=== PATIENT | female | born 1995 | race Caucasian/White ===

== ENCOUNTER 2016-12-19 14:38 | Observation (INO) | payer MEDICAID ==
[~2016-12-19] VITALS: Ht 167.6 cm; Wt 79.4 kg
[~2016-12-19 14:38] MED LIST: CEPH-507 PO; FERR-74 PO; HYDR-3812 PO; IBUP-1773 PO; PREN1.4T2 PO; SULF1TAB35 PO
--- NOTE | 2016-12-19 17:26 | ED Upper Extremity ---
General Chief Complaint: Upper Extremity Stated Complaint: SWOLLEN HAND PAIN IN L HAND Nursing Triage Note: PT REPORTS BLOOD DRAW APPROX 3 WEEKS FROM FINGER STICK AND HAS HAD INCREASED SWELLING AND BRUISING SINCE. REPORTS SEVERAL ER VISITS AND DR VISITS WITHOUT IMPROVEMENT. LEFT INDEX FINGER COOL, BLUE, AND TENDER TO THE TOUCH. CAP REFILL CAUSED TOO MUCH DISCOMFORT TO SEE COLOR CHANGE. Nursing Sepsis Screen: No Definite Risk Source: patient History of Present Illness Time seen by provider: 17:00 Initial Comments The patient is a 21-year-old white female who states that 3 weeks ago she had a blood draw attempted at an outpatient provider. They were in able to get a venous specimen so attempted to do a fingerstick on the left second finger. She reported this was very painful and more so when they attempted to squeeze for blood and she did not allow any further attempts. No blood was obtained. She reported that it continued to hurt and 4 or 5 days later began to turn color to a bluish tent. She then saw the emergency room at [facility]. She was told that this was a bruise and it would resolve. It did not and continued to become more ugly and color. She saw her provider and again was reassured that this was a bruise. Today at our ER is her third contact. Pain/Injury Location: left 2nd finger Method of Injury: unknown Allergies and Home Medications Allergies Coded Allergies: No Known Drug Allergies (Unverified , 06/05/15) Home Medications No Active Prescriptions or Reported Meds Constitutional: see HPI EENTM: no symptoms reported Respiratory: no symptoms reported Gastrointestinal: no symptoms reported Genitourinary: no symptoms reported Musculoskeletal: see HPI Skin: see HPI Psychiatric/Neurological: No Symptoms Reported Past Epdpraa-Iicyad-Mafyhh Hx Patient Social History Alcohol Use: Denies Use Recreational Drug Use: Yes (MARIJUANA; PAST HERION USE) Smoking Status: Current Everyday Smoker Type Used: Cigarettes Recent Foreign Travel: No Contact w/Someone Who Travel: No Recent Infectious Disease Expo: No Recent Hopitalizations: No Immunizations Up To Date Tetanus Booster (TDap): Less than 5yrs PED Vaccines UTD: No Date of Influenza Vaccine: Jun 21, 2016 Seasonal Allergies Seasonal Allergies: No Surgeries HX Surgeries: Yes Surgeries: Orthopedic Respiratory Hx Respiratory Disorders: No Cardiovascular Hx Cardiac Disorders: Yes Cardiac Disorders: Chronic Edema/Swelling Neurological Hx Neurological Disorders: No Reproductive System : No Hx Reproductive Disorders: No Genitourinary Hx Genitourinary Disorders: No Gastrointestinal Hx Gastrointestinal Disorders: Yes (HEP C) Gastrointestinal Disorders: Hepatitis Musculoskeletal Hx Musculoskeletal Disorders: No Endocrine Hx Endocrine Disorders: No HEENT HX ENT Disorders: No Cancer Hx Cancer: No Psychosocial Hx Psychiatric Problems: No Integumentary HX Skin/Integumentary Disorder: No Blood Transfusions Hx Blood Disorders: No Adverse Reaction to a Blood Tr: No Family Medical History Family Medial History: Patient reports no known family medical history. Physical Exam Vital Signs Vital Sign - Last 12Hours 12/19/16 15:30 Temp 99.4 Pulse 92 Resp 18 B/P (MAP) 141/92 O2 Delivery Room Air Capillary Refill : Less Than 3 Seconds General Appearance: moderate distress HEENT: normal ENT inspection Neck: normal inspection Cardiovascular: normal peripheral pulses, regular rate, rhythm, no edema, no gallop, no JVD, no murmur Respiratory: chest non-tender, lungs clear, normal breath sounds, no respiratory distress, no accessory muscle use Comments The distal phalanx of the left second finger is a seth blue in color. She is loathe to let me compressive however it does not show any blanching or return when I did so. This was quite painful to her. Progress/Results/Core Measures Results/Orders Vital Signs/I&O Vital Sign - Last 12Hours 12/19/16 15:30 Temp 99.4 Pulse 92 Resp 18 B/P (MAP) 141/92 O2 Delivery Room Air Blood Pressure Mean: 108 Departure Communication Progress Notes [address] Parks. He requested overnight admission and subcutaneous Lovenox. He will make a judgment in the morning about possibility of amputation. Impression Impression: Primary Impression: arterial obstruction distal phalanx left second finger Disposition: ADMITTED INPATIENT Condition: Stable/Unchanged Decision to Admit/Date: Dec 19, 2016 Time/Decision to Admit Time: 17:22 Departure-Patient Inst. Referrals: NO,LOCAL PHYSICIAN (PCP/Family) Primary Care Physician Scripts No Active Prescriptions or Reported Meds DIAZ VALENTINE MD Dec 19, 2016 17:26
[2016-12-19] MEDS ORDERED: ENOXAPARIN 40 MG/0.4 ML (LOVENOX) SYR SC ONE (17:45)
[2016-12-19] MEDS ORDERED: HYDROcodone/APAP 10 MG/325 MG (LORTAB) TAB PO ONE (18:00)
[2016-12-19] MEDS ORDERED: HYDROcodone/APAP 10 MG/325 MG (LORTAB) TAB PO PRN (19:30)
[2016-12-19] MEDS ORDERED: CATHETER FLUSH 10 ML SYR IV PRN (19:30)
[2016-12-19] MEDS: oxyCODONE/APAP 5/325MG (PERCOCET 5) TABLET PO PRN (20:06)
[2016-12-19] MEDS: CATHETER FLUSH 10 ML SYR IV SCH (22:48)
[2016-12-20] VITALS: BP 114/80
[2016-12-20] MEDS: oxyCODONE/APAP 5/325MG (PERCOCET 5) TABLET PO PRN ×3 (00:04→08:46)
[2016-12-20 04:00] VITALS: BP 113/64
[2016-12-20] MEDS: CATHETER FLUSH 10 ML SYR IV SCH (06:15)
[2016-12-20 08:00] VITALS: BP 109/72
[2016-12-20] MEDS ORDERED: ENOXAPARIN 40 MG/0.4 ML (LOVENOX) SYR SC SCH (09:00)
[2016-12-20] MEDS ORDERED: CIPROFLOXACIN 500 MG (CIPRO) TABLET PO SCH (09:00)
--- NOTE | 2016-12-20 09:13 | HISTORY AND PHYSICAL ---
DATE OF ADMISSION: 12/19/2016 ATTENDING PRIMARY CARE PHYSICIAN: [facility] Ms. Milagros Paul is a 21-year-old female who presented to [facility] emergency department today with a 3 week history of pain, swelling and discoloration of the left second distal finger. She underwent an attempted blood draw as an outpatient; however, they were unable to get blood at that time so they attempted a fingerstick which she reports was painful and no blood was obtained. She then reports that the pain and swelling continued for 4 to 5 days and did turn a bluish tint. She was seen at another emergency department where it was diagnosed to be a bruise and ecchymosis and was would resolve on its own. Over the next 3 weeks, the discoloration worsened as did the pain. On examination, there appears to be dry necrosis of the left second distal tip of the finger. She does not report any cold exposure to indicate a possible frostbite. She does not report any known history of any hypercoagulable disorders. She has also not experienced any fever nor chills and does not report any history of systemic infections or signs and symptoms of bacterial endocarditis. PAST MEDICAL HISTORY: 1. History of drug abuse. 2. Hepatitis C. PAST SURGERIES: Orthopedic procedure. ALLERGIES: No known drug allergies. MEDICATIONS: None. SOCIAL HISTORY: Positive smoke, 5 pack-years. History of marijuana and heroin use. FAMILY HISTORY: Noncontributory. VITAL SIGNS: Temperature 99.4, blood pressure 141/92, pulse 92, respirations 18. REVIEW OF SYSTEMS: This is a well-nourished female currently in no acute distress. She is not experiencing any shortness of breath or difficulty breathing. No chest pain, palpitations, or diaphoresis. No nausea or vomiting. No diarrhea or constipation. No fever or chills. No recent inadvertent weight loss. PHYSICAL EXAMINATION: CHEST: Clear. HEART: Regular. EXTREMITIES: No lower extremity edema. Negative Guerda sign. HEENT: No scleral icterus. No cervical lymphadenopathy. SKIN: Skin along the distal left second finger phalanx is a darkish discoloration and what appears to be dry necrosis. She has palpable radial and ulnar pulses. 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 We will admit and proceed with a trial of anticoagulation with therapeutic Lovenox on a b.i.d. basis. If there is no change in the status of the distal phalanx, we will then proceed with amputation of the distal phalanx. Job ID: [id number] Dictated Date: 12/19/2016 21:56:17 Blind Slat Stapling Machine Operator Date: 12/20/2016 09:05:17/jonas
--- NOTE | 2016-12-20 10:23 | Diagnostic Imaging Report ---
INDICATION: Pain and swelling. FINDINGS: The alignment of the left index finger is normal. There is no fracture or dislocation. The soft tissues are grossly unremarkable. IMPRESSION: No acute fracture or dislocation Dictated by: Dictated on workstation # [id number]
--- NOTE | 2016-12-20 12:02 | Progress Note (SOAP) ---
Subjective Subjective/Events-last exam Patient seen with Dr. Parks. Patient reports doing well. Reports that left index finger is still painful and pain meds do help some. Patient says that she believes the index finger is slight less bluish color. No fever/chills. Review of Systems General: No Chills, No Night Sweats Gastrointestinal: No: Abdominal Pain, Nausea, Vomiting Objective Exam Vital Signs Date Time Temp Pulse Resp B/P (MAP) Pulse Ox O2 Delivery O2 Flow Rate FiO2 12/20/16 09:00 96 Room Air 12/20/16 08:00 97.2 71 20 109/72 96 Room Air 12/20/16 04:00 98.0 71 22 113/64 97 Room Air 12/20/16 00:00 98.1 99 22 114/80 93 Room Air 12/19/16 22:06 Room Air 12/19/16 18:11 99.4 12/19/16 18:11 99.4 12/19/16 15:30 99.4 92 18 141/92 Room Air I & O 12/20/16 07:00 Intake Total 650 ml Balance 650 ml Capillary Refill : Less Than 3 Seconds General Appearance: No Apparent Distress, WD/WN HEENT: PERRL/EOMI Neck: Full Range of Motion, Normal Inspection, Non Tender, Supple Respiratory: Lungs Clear, Normal Breath Sounds, No Accessory Muscle Use, No Respiratory Distress Cardiovascular: Regular Rate, Rhythm, No Edema Gastrointestinal: normal bowel sounds, non tender, soft Extremity: Normal Capillary Refill (Left index finger not assessed due to severe pain, otherwise normal.), Normal Inspection (Except for left index finger.), Normal Range of Motion, Non Tender, No Calf Tenderness, No Pedal Edema Neurologic/Psychiatric: Alert, Oriented x3 Skin: Normal Color, Warm/Dry, Other (There is a left index finger with a bluish /seth distal tip. Painful to palpation. 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 Continue with Pain meds. Lovenox and continue to monitor vs surgical intervention with amputation. Will Discharge home and follow up in 2 weeks. Clinical Quality Measures DVT/VTE Risk/Contraindication: Risk Factor Score Per Nursin RFS Level Per Nursing on Admit: 2=Moderate JULIENNE RALPH APRN Dec 20, 2016 12:02 pm
--- NOTE | 2016-12-20 12:25 | Discharge Inst-Surgical ---
D/C Lap Instructions-KIDO New, Converted, or Re-Newed RX: RX on Chart Follow Up Appt in 2 weeks Activity as tolerated No driving while on pain medications Regular diet. Symptoms to Report: Fever over 101 degree F, Nausea/Vomiting If any problems/questions: Contact your physician or go to Emergency Room JULIENNE RALPH APRN Dec 20, 2016 12:24
[2016-12-20] MEDS ORDERED: OXYC-197 PO (12:38)
[2016-12-20] MEDS ORDERED: ENOX40DI13 SQ (12:38)
[2016-12-20] MEDS ORDERED: CIPR-225 PO (12:38)
[2016-12-20 14:30] VITALS: BP 109/72
--- NOTE | 2016-12-26 10:59 | Physician Query-Final Dx ---
DEWAYNE MOON 12/26/16 1059: Final Diagnosis Give Final Diagnosis Please give Final Diagnosis GABY MADERA MD 12/26/16 1246: Final Diagnosis Give Final Diagnosis digit ischemia due to arterial thrombosis DEWAYNE MOON Dec 26, 2016 10:59 GABY MADERA MD Dec 26, 2016 12:46
--- OUTSIDE RECORDS SUMMARY | 2017-01-11 08:48 | XMS REPORT ---
Author MARLO Lacy Organization [employer] Address Unknown Phone Unavailable Care Team Providers Care Unix Analyst Name Role Phone MARLO WILLIS CP Unavailable Allergies No Known Allergies Problems Problem Type Condition Code Onset Dates Condition Status Problem History of drug abuse Z87.898 Active Problem Controlled substance agreement terminated Z92.89 Active Problem Anxiety F41.9 Active Problem Hepatitis C antibody test positive R76.8 Active Medications No Known Medications Results No Known Results Summary Purpose [employer] Submission
--- OUTSIDE RECORDS SUMMARY | 2017-01-11 08:48 | XMS REPORT ---
Author Author DANA AMAYA [facility] [employer] Address Unknown Phone Unavailable Care Team Providers Care Men'S Locker Room Attendant Name Role Phone DANA AMAYA Unavailable Allergies No Known Allergies Problems Problem Type Condition ICD-9 Code Onset Dates Condition Status Problem Hepatitis C reactive 795.79 Active Problem History of drug abuse 305.93 Active Problem , normal first V22.0 Active Assessment , normal first V22.0 Active Medications No Known Medications Procedures Procedure Coding System Code Date Office Visit, Est Pt., Level 3 CPT-4 25961 May 10, 2015 Vital Signs Date/Time: May 10, 2015 Blood Pressure Diastolic 60 mmHg Blood Pressure Systolic 120 mmHg Weight 205 lbs Results No Known Results Summary Purpose [employer]Clinical[employer] Submission
--- OUTSIDE RECORDS SUMMARY | 2017-01-11 08:48 | XMS REPORT ---
Author Author DANA AMAYA [facility] [employer] Address Unknown Phone Unavailable Care Team Providers Care Heavy Machinery Operator Name Role Phone DANA AMAYA Unavailable Allergies No Known Allergies Problems Problem Type Condition Code Onset Dates Condition Status Problem Hepatitis C reactive 795.79 Active Problem History of drug abuse 305.93 Active Problem , normal first V22.0 Active Medications No Known Medications Results No Known Results Summary Purpose [employer] Submission
--- OUTSIDE RECORDS SUMMARY | 2017-01-11 08:48 | XMS REPORT ---
Author MATTHEW Garcia [facility] [employer] Address Unknown Phone Unavailable Care Team Providers Care Machine Sole Leveler Name Role Phone MATTHEW RITTER CP Unavailable Allergies No Known Allergies Problems Problem Type Condition ICD-9 Code Onset Dates Condition Status Problem Hepatitis C reactive 795.79 Active Problem History of drug abuse 305.93 Active Problem , normal first V22.0 Active Medications No Known Medications Results No Known Results Summary Purpose [employer] Submission
--- OUTSIDE RECORDS SUMMARY | 2017-01-11 08:48 | XMS REPORT | Continuity of Care Document ---
Author Author [facility] Address Unknown Phone Unavailable Allergies Active Description Code Type Severity Reaction Onset Reported/Identified Relationship to Patient Clinical Status Yes No Known Drug Allergies [id number] Drug Allergy Unknown N/ A 06/05/2015 Medications Problems Date Dx Coded Attending Type Code Diagnosis Diagnosed By 12/25/2014 MATTHEW RITTER DO V23.2 SUPERVISION OF HIGH-RISK WITH HISTORY OF 12/25/2014 MATTHEW RITTER DO V23.89 SUPERVISION OF OTHER HIGH-RISK 12/25/2014 MATTHEW RITTER DO V23.2 SUPERVISION OF HIGH-RISK WITH HISTORY OF 12/25/2014 MATTHEW RITTER DO V23.89 SUPERVISION OF OTHER HIGH-RISK 12/25/2014 MATTHEW RITTER DO V23.2 SUPERVISION OF HIGH-RISK WITH HISTORY OF 12/25/2014 MATTHEW RITTER DO V23.89 SUPERVISION OF OTHER HIGH-RISK 01/03/2015 MATTHEW RITTER DO 070.70 UNSPECIFIED VIRAL HEPATITIS C WITHOUT HEPATIC COMA 01/03/2015 MATTHEW RITTER DO 648.30 COMPL OF - DRUG DEPENDENCE 02/19/2015 DANA AMAYA E GAS WELL DRILLING MANAGER Ot V23.2 02/19/2015 DANA AMAYA E GAS WELL DRILLING MANAGER Ot V23.89 02/19/2015 VALERIA AMAYASIE E GAS WELL DRILLING MANAGER Ot V28.89 02/19/2015 VALERIA AMAYASIE E GAS WELL DRILLING MANAGER Ot V23.2 02/19/2015 DANA AMAYA E GAS WELL DRILLING MANAGER Ot V23.89 02/19/2015 VALERIA AMAYASIE E GAS WELL DRILLING MANAGER Ot V28.89 03/13/2015 MATTHEW RITTER DO Ot V22.0 03/15/2015 VALERIA AMAYASIE E GAS WELL DRILLING MANAGER Ot V23.2 03/15/2015 DANA AMAYA E GAS WELL DRILLING MANAGER Ot V23.89 03/15/2015 DANA AMAYA E GAS WELL DRILLING MANAGER Ot V28.89 04/12/2015 DANA AMAYA E GAS WELL DRILLING MANAGER Ot V23.2 04/12/2015 DANA AMAYA E GAS WELL DRILLING MANAGER Ot V23.89 04/12/2015 DANA AMAYA E GAS WELL DRILLING MANAGER Ot V28.89 04/12/2015 VALERIA RITTER DOA Kyree Ot V22.0 04/24/2015 DANA AMAYA E GAS WELL DRILLING MANAGER Ot 641.13 05/09/2015 VALERIA RITTER DOA K Ot 648.93 OTH CURR COND-ANTEPARTUM 05/09/2015 VALERIA RITTER DOA K Ot 789.00 ABDOMINAL PAIN, UNSPECIFIED SITE 05/21/2015 DANA AMAYA GAS WELL DRILLING MANAGER Ot 641.13 06/05/2015 VALERIA RITTER DOA Kyree Ot 644.13 THREAT LABOR NEC-ANTEPAR 06/05/2015 MATTHEW RITTER DO Ot V04.81 ND FOR PROPHYLACTIC VACCIN AND INOCULATI 06/06/2015 MATTHEW RITTER DO Ot 644.03 THRT ZORAIDA LABOR-ANTEPART 06/10/2015 GRICEL WILKES, LIANNE Armstrong Ot 650 NORMAL DELIVERY 06/10/2015 GRICEL WILKES, LIANNE Armstrong Ot V27.0 DELIVER-SINGLE LIVEBORN 06/17/2015 DANA AMAYA E GAS WELL DRILLING MANAGER Ot V23.2 06/17/2015 DANA AMAYA E GAS WELL DRILLING MANAGER Ot V23.89 06/17/2015 DANA AMAYA E GAS WELL DRILLING MANAGER Ot V28.89 06/17/2015 VALERIA RITTER DOA Kyree Ot V22.0 06/17/2015 DANA AMAYA E GAS WELL DRILLING MANAGER Ot 641.13 06/17/2015 DANA AMAYA E GAS WELL DRILLING MANAGER Ot 641.13 06/18/2015 MARTA WILKES, MULU Brooks Ot 591 HYDRONEPHROSIS 06/18/2015 MARTA WILKES, MULU Brooks Ot 594.1 BLADDER CALCULUS NEC 06/18/2015 MARTA WILKES, MULU Brooks Ot 599.0 URIN TRACT INFECTION NOS 06/18/2015 MARTA WILKES, MULU Brooks Ot 788.1 DYSURIA 06/18/2015 MARTA WILKES, MULU T Ot 788.20 RETENTION OF URINE NOS 05/09/2016 MATTHEW RITTER DO Ot 648.93 OTH CURR COND-ANTEPARTUM 05/09/2016 MATTHEW RITTER DO Ot 789.00 ABDOMINAL PAIN, UNSPECIFIED SITE 05/11/2016 HELVALERIA GALARZASIE E GAS WELL DRILLING MANAGER Ot V23.2 PREG W HX OF 05/11/2016 HELLVALERIA HARDWICKSIE E GAS WELL DRILLING MANAGER Ot V23.89 SUPRV OTH HIGH-RISK 05/11/2016 HELLRONEN DANA E GAS WELL DRILLING MANAGER Ot V28.89 OTHER SPECIFIED SCREENING 05/11/2016 MATTHEW RITTER DO Ot V22.0 SUPERVIS NORMAL 1ST PREG 05/11/2016 VALERIA AMAYASIE E GAS WELL DRILLING MANAGER Ot 641.13 PLACEN PREV HEM-ANTEPART 05/11/2016 NITALVALERIA HARDWICKSIE E GAS WELL DRILLING MANAGER Ot 641.13 PLACEN PREV HEM-ANTEPART 05/11/2016 REBECCA BUCK GAS WELL DRILLING MANAGER Ot R23.4 CHANGES IN SKIN TEXTURE 05/13/2016 REBECCA BUCK GAS WELL DRILLING MANAGER Ot R23.4 CHANGES IN SKIN TEXTURE 05/17/2016 REBECCA BUCK GAS WELL DRILLING MANAGER Ot R23.4 CHANGES IN SKIN TEXTURE 12/19/2016 DANA AMAYA E GAS WELL DRILLING MANAGER Ot V23.2 PREG W HX OF 12/19/2016 VALERIA AMAYASIE E GAS WELL DRILLING MANAGER Ot V23.89 SUPRV OTH HIGH-RISK 12/19/2016 VALERIA AMAYASIE E GAS WELL DRILLING MANAGER Ot V28.89 OTHER SPECIFIED SCREENING 12/19/2016 MATTHEW RITTER DO Ot V22.0 SUPERVIS NORMAL 1ST PREG 12/19/2016 VALERIA AMAYASIE E GAS WELL DRILLING MANAGER Ot 641.13 PLACEN PREV HEM-ANTEPART 12/19/2016 VALERIA AMAYASIE E GAS WELL DRILLING MANAGER Ot 641.13 PLACEN PREV HEM-ANTEPART 12/20/2016 SANTY WILKES, GABY Ot F17.210 NICOTINE DEPENDENCE, CIGARETTES, UNCOMPL 12/20/2016 SANTY WILKES, GABY Ot I74.2 EMBOLISM AND THROMBOSIS OF ARTERIES OF T 12/20/2016 SANTY WILKES, GABY Ot I96 GANGRENE, NOT ELSEWHERE CLASSIFIED 12/20/2016 GABY MADERA MD Ot T81.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 ARTERY FOLLOWING A 12/20/2016 GABY MADERA MD Ot F17.210 NICOTINE DEPENDENCE, CIGARETTES, UNCOMPL 12/20/2016 GABY MADERA MD Ot I74.2 EMBOLISM AND THROMBOSIS OF ARTERIES OF T 12/20/2016 GABY MADERA MD Ot I96 GANGRENE, NOT ELSEWHERE CLASSIFIED 12/20/2016 GABY MADERA MD, Ot T81.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 ARTERY FOLLOWING A Procedures Code [place] [address] TEST, URINE (IN-HOUSE) 12/25/2014 93059 URINE DRUG SCREEN (IN-HOUSE) 12/25/2014 01775 UA OB DIP 2014 03829 OB - EARLY <14 WEEKS 12/25/2014 85691 ROUTINE VENIPUNCTURE 12/29/2014 82853 CMP 12/29/2014 37427 TSH 12/29/2014 94049 CBC 12/29/2014 92819 SYPHILLIS-STATE [facility] 12/29/2014 07221 HIV (STATE LAB) 12/29/2014 39132 RUBELLA ANTIBODY, IGG 12/29/2014 43663 ANTIBODY SCREEN (order) 12/29/2014 03579 BLOOD TYPE/Rh FACTOR 12/29/2014 18684 CULTURE URINE 06/2015 43407 HEP B SURFACE ANTIGEN (STATE) 12/29/2014 77697 HEP C PCR QUANT W/BRISEIDA 12/29/2014 73.6 EPISIOTOMY 2014 Results Test Result Range Urine drug screening test - 12/19/16 22:05 Urine phencyclidine detection by screening method NEGATIVE NEGATIVE Urine benzodiazepines detection by screening method POSITIVE NEGATIVE Urine cocaine detection NEGATIVE NEGATIVE Urine amphetamines detection by screening method NEGATIVE NEGATIVE Urine methamphetamine detection by screening method NEGATIVE NEGATIVE Urine cannabinoids detection by screening method POSITIVE NEGATIVE Urine opiates detection by screening method POSITIVE NEGATIVE Urine barbiturates detection NEGATIVE NEGATIVE Screening urine tricyclic antidepressants detection NEGATIVE NEGATIVE Urine methadone detection by screening method NEGATIVE NEGATIVE Urine oxycodone detection NEGATIVE NEGATIVE Urine propoxyphene detection NEGATIVE NEGATIVE Encounters ACCT No. Visit Date/Time Discharge Status Pt. Type Provider Facility Loc./Unit Complaint [id number] 01/03/2015 15:51:00 01/03/2015 23: 59:59 CLS Outpatient RITTER DO, MATTHEW K [id number] 12/29/2014 12:01:00 12/29/2014 23: 59:59 CLS Outpatient MATTHEW RITTER DO [id number] 12/25/2014 13:40:00 12/25/2014 23: 59:59 CLS Outpatient MATTHEW RITTER DO
--- OUTSIDE RECORDS SUMMARY | 2017-01-11 08:48 | XMS REPORT ---
Author DANA Mcnair [facility] [employer] Address Unknown Phone Unavailable Care Team Providers Care Manager Farm Name Role Phone DANA AMAYA CP Unavailable Allergies No Known Allergies Problems Problem Type Condition Code Onset Dates Condition Status Problem History of drug abuse Z87.898 Active Problem Controlled substance agreement terminated Z92.89 Active Problem Anxiety F41.9 Active Problem Hepatitis C antibody test positive R76.8 Active Medications No Known Medications Results No Known Results Summary Purpose [employer]ClinicalWorks Submission
--- OUTSIDE RECORDS SUMMARY | 2017-01-11 08:48 | XMS REPORT ---
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
--- OUTSIDE RECORDS SUMMARY | 2017-01-11 08:48 | XMS REPORT ---
Author MATTHEW Garcia [facility] [employer] Address Unknown Phone Unavailable Care Team Providers Care Sugar Cane Planter Name Role Phone MATTHEW RITTER CP Unavailable Allergies No Known Allergies Problems Problem Type Condition ICD-9 Code Onset Dates Condition Status Problem Hepatitis C reactive 795.79 Active Problem History of drug abuse 305.93 Active Problem , normal first V22.0 Active Medications No Known Medications Results No Known Results Summary Purpose [employer]Works Submission
--- OUTSIDE RECORDS SUMMARY | 2017-01-11 08:48 | XMS REPORT ---
Author MATTHEW Garcia [facility] [employer] Address Unknown Phone Unavailable Care Team Providers Care Supervisor Poultry Farm Name Role Phone MATTHEW RITTER CP Unavailable Allergies No Known Allergies Problems Problem Type Condition ICD-9 Code Onset Dates Condition Status Problem Hepatitis C reactive 795.79 Active Problem History of drug abuse 305.93 Active Problem , normal first V22.0 Active Medications No Known Medications Results No Known Results Summary Purpose [employer]ClinicalWorks Submission
--- OUTSIDE RECORDS SUMMARY | 2017-01-11 08:49 | XMS REPORT ---
Author Author DANA AMAYA [facility] eClinicalWorks Address Unknown Phone Unavailable Care Team Providers Care Hospice Volunteer Coordinator Name Role Phone DANA AMAYA CP Unavailable Allergies, Adverse Reactions, Alerts Substance Reaction Event Type N.K.D.A. Info Not Available Non Drug Allergy Problems Problem Type Condition Code Onset Dates Condition Status Problem Hepatitis C reactive 795.79 Active Problem History of drug abuse 305.93 Active Problem , normal first V22.0 Active Assessment care and examination immediately after delivery Z39.0 Active Assessment Routine gynecological examination V72.31 Active Assessment Screening for STD (sexually transmitted disease) Z11.3 Active Medications No Known Medications Procedures Procedure Coding System Code Date CULTURE, BACTERIA, OTHER CPT-4 69881 Jul 19, 2015 SPECIMEN HANDLING CPT-4 23776 Jul 19, 2015 No Charge CPT-4 12011 Jul 19, 2015 Preventive Care Est Pt. Age 18-39 CPT-4 09493 Jul 19, 2015 TRICHOMONAS VAGIN, DIR PROBE CPT-4 01612 Jul 19, 2015 Vital Signs Date/Time: Jul 19, 2015 Temperature 98.2 F Weight 182.8 lbs Height 66 in BMI 29.50 Index Blood Pressure Diastolic 80 mmHg Blood Pressure Systolic 100 mmHg Cardiac Monitoring Heart Rate 88 bpm Results Name Result Date Reference Range Unit Abnormality Flag TRICHOMONAS (IN HOUSE) PAP TEST, HPV IF ASCUS Summary Purpose eClinicalWorks Submission
--- OUTSIDE RECORDS SUMMARY | 2017-01-11 08:49 | XMS REPORT ---
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
--- OUTSIDE RECORDS SUMMARY | 2017-01-11 08:49 | XMS REPORT ---
Author MATTHEW Garcia [facility] eClinicalWorks Address Unknown Phone Unavailable Care Team Providers Care Tube Filler Name Role Phone MATTHEW RITTER CP Unavailable Allergies No Known Allergies Problems Problem Type Condition ICD-9 Code Onset Dates Condition Status Problem Hepatitis C reactive 795.79 Active Problem History of drug abuse 305.93 Active Problem , normal first V22.0 Active Medications No Known Medications Results No Known Results Summary Purpose eClinicalWorks Submission
--- OUTSIDE RECORDS SUMMARY | 2017-01-11 08:49 | XMS REPORT ---
Author Author ALESSANDRA FERRO Organization eClinicalWorks Address Unknown Phone Unavailable Care Team Providers Care Can Stacker Name Role Phone ALESSANDRA FERRO CP Unavailable Allergies, Adverse Reactions, Alerts Substance Reaction Event Type N.K.D.A. Info Not Available Non Drug Allergy Problems Problem Type Condition ICD-9 Code Onset Dates Condition Status Problem Hepatitis C reactive 795.79 Active Problem History of drug abuse 305.93 Active Problem , normal first V22.0 Active Assessment Rash and nonspecific skin eruption 782.1 Active Assessment Edema 782.3 Active Medications Medication Code System Code Instructions Start Date End Date Status Dosage Zyrtec Allergy [facility] [address]-99 10 MG Orally Once a day Jun 14, 2015 Jun 24, 2015 1 tablet as needed Plus Iron [facility] [address]-45 29-1 MG Orally Once a day Apr 25, 2015 1 tablet Procedures Procedure Coding System Code Date Office Visit, Est Pt., Level 3 CPT-4 74474 Jun 14, 2015 Vital Signs Date/Time: Jun 14, 2015 Temperature 99.3 F Weight 200.8 lbs Height 66 in BMI 32.41 Index Blood Pressure Diastolic 70 mmHg Blood Pressure Systolic 100 mmHg Cardiac Monitoring Heart Rate 76 bpm Results No Known Results Summary Purpose eClinicalWorks Submission
--- OUTSIDE RECORDS SUMMARY | 2017-01-11 08:49 | XMS REPORT ---
Author Author ELEANOR MCALLISTER Organization eClinicalWorks Address Unknown Phone Unavailable Care Team Providers Care Final Application Reviewer Name Role Phone ELEANOR MCALLISTER CP Unavailable Allergies, Adverse Reactions, Alerts Substance Reaction Event Type N.K.D.A. Info Not Available Non Drug Allergy Problems Problem Type Condition ICD-9 Code Onset Dates Condition Status Problem Hepatitis C reactive 795.79 Active Problem History of drug abuse 305.93 Active Problem , normal first V22.0 Active Assessment URI (upper respiratory infection) 465.9 Active Medications Medication Code System Code Instructions Start Date End Date Status Dosage Plus Iron [facility] [address]-90 29-1 MG Orally Once a day Apr 25, 2015 1 tablet Procedures Procedure Coding System Code Date Office Visit, Est Pt., Level 3 CPT-4 47874 May 24, 2015 Vital Signs Date/Time: May 24, 2015 Blood Pressure Systolic 122 mmHg Temperature 98.1 F Weight 207.1 lbs Blood Pressure Diastolic 64 mmHg Results No Known Results Summary Purpose eClinicalWorks Submission
--- OUTSIDE RECORDS SUMMARY | 2017-01-11 08:49 | XMS REPORT ---
Author MATTHEW Garcia [facility] eClinicalWorks Address Unknown Phone Unavailable Care Team Providers Care Hand Tapper Name Role Phone MATTHEW RITTER CP Unavailable Allergies No Known Allergies Problems Problem Type Condition ICD-9 Code Onset Dates Condition Status Problem Hepatitis C reactive 795.79 Active Problem History of drug abuse 305.93 Active Problem , normal first V22.0 Active Medications No Known Medications Results No Known Results Summary Purpose eClinicalWorks Submission
--- OUTSIDE RECORDS SUMMARY | 2017-01-11 08:49 | XMS REPORT ---
Author LIANNE Zarate eClinicalWorks Address Unknown Phone Unavailable Care Team Providers Care Placer Miner Name Role Phone LIANNE MONSALVE CP Unavailable Allergies, Adverse Reactions, Alerts Substance Reaction Event Type N.K.D.A. 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 Active Medications No Known Medications Procedures Procedure Coding System Code Date URINE TEST CPT-4 52178 Aug 14, 2015 LEVONORGESTREL INTRAUTERN CNTRACPT CPT-4 J7302 Aug 14, 2015 INSERT INTRAUTERINE DEVICE CPT-4 63830 Aug 14, 2015 Vital Signs Date/Time: Aug 14, 2015 Temperature 97.5 F Weight 178.8 lbs Height 66 in BMI 28.86 Index Blood Pressure Diastolic 70 mmHg Blood Pressure Systolic 108 mmHg Cardiac Monitoring Heart Rate 78 bpm Results Name Result Date Reference Range Unit Abnormality Flag TEST, URINE (IN HOUSE) ----RESULTS Negative [id number] ----Lot # [id number] ----Control + [id number] ----Exp date [id number] IUD INSERTION Summary Purpose eClinicalWorks Submission
--- OUTSIDE RECORDS SUMMARY | 2017-01-11 08:49 | XMS REPORT ---
Author Author DANA AMAYA [facility] eClinicalWorks Address Unknown Phone Unavailable Care Team Providers Care Retail Agent Name Role Phone DANA AMAYA Unavailable Allergies No Known Allergies Problems Problem Type Condition ICD-9 Code Onset Dates Condition Status Problem Hepatitis C reactive 795.79 Active Problem History of drug abuse 305.93 Active Problem , normal first V22.0 Active Medications No Known Medications Results No Known Results Summary Purpose eClinicalWorks Submission
--- OUTSIDE RECORDS SUMMARY | 2017-01-11 08:49 | XMS REPORT ---
Author Author DANA AMAYA [facility] eClinicalWorks Address Unknown Phone Unavailable Care Team Providers Care Bottle House Cleaners Supervisor Name Role Phone DANA AMAYA Unavailable Allergies No Known Allergies Problems Problem Type Condition Code Onset Dates Condition Status Problem Hepatitis C reactive 795.79 Active Problem History of drug abuse 305.93 Active Problem , normal first V22.0 Active Medications Medication Code System Code Instructions Start Date End Date Status Dosage Ampicillin [facility] [address]-87 500 MG Orally 2 times a day Jul 30, 2015 Aug 06, 2015 1 capsule Results No Known Results Summary Purpose eClinicalWorks Submission
--- OUTSIDE RECORDS SUMMARY | 2017-01-11 08:49 | XMS REPORT ---
Author FROYLAN Haider Organization eClinicalWorks Address Unknown Phone Unavailable Care Team Providers Care Seating Captain Name Role Phone FROYLAN CERVANTES CP Unavailable Allergies No Known Allergies Problems Problem Type Condition Code Onset Dates Condition Status Problem Hepatitis C reactive 795.79 Active Problem History of drug abuse 305.93 Active Problem , normal first V22.0 Active Medications No Known Medications Results No Known Results Summary Purpose eClinicalWorks Submission
--- OUTSIDE RECORDS SUMMARY | 2017-01-11 08:49 | XMS REPORT ---
Author Author DANA AMAYA [facility] eClinicalWorks Address Unknown Phone Unavailable Care Team Providers Care Truck Driver Flatbed Name Role Phone DANA AMAYA Unavailable Allergies No Known Allergies Problems Problem Type Condition ICD-9 Code Onset Dates Condition Status Problem Hepatitis C reactive 795.79 Active Problem History of drug abuse 305.93 Active Problem , normal first V22.0 Active Medications No Known Medications Results No Known Results Summary Purpose eClinicalWorks Submission
--- OUTSIDE RECORDS SUMMARY | 2017-01-11 08:49 | XMS REPORT ---
Author Author DANA AMAYA [facility] eClinicalWorks Address Unknown Phone Unavailable Care Team Providers Care Crew Dispatcher Name Role Phone DANA AMAYA Unavailable Allergies No Known Allergies Problems Problem Type Condition ICD-9 Code Onset Dates Condition Status Problem Hepatitis C reactive 795.79 Active Problem History of drug abuse 305.93 Active Problem , normal first V22.0 Active Medications No Known Medications Results No Known Results Summary Purpose eClinicalWorks Submission
--- OUTSIDE RECORDS SUMMARY | 2017-01-11 08:49 | XMS REPORT ---
Author Author DANA AMAYA [facility] eClinicalWorks Address Unknown Phone Unavailable Care Team Providers Care Kiln Stoker Name Role Phone DANA AMAYA CP Unavailable Allergies, Adverse Reactions, Alerts Substance Reaction Event Type N.K.D.A. 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 Assessment Depression with anxiety F41.8 Active Medications Medication Code System Code Instructions Start Date End Date Status Dosage BusPIRone HCl [facility] [address]-23 10 MG Orally Twice a day Sep 25, 2015 1 tablet Metoprolol Succinate ER [facility] [address]-08 25 MG Orally Once a day Oct 03, 2015 1 tablet Effexor XR [facility] [address]-02 37.5 MG Orally Once a day Oct 03, 2015 1 capsule with food Benadryl [facility] [address]-49 25 MG Orally every 6 hrs Sep 25, 2015 1 capsule as needed Procedures Procedure Coding System Code Date Office Visit, Est Pt., Level 3 CPT-4 66782 Oct 03, 2015 Vital Signs Date/Time: Oct 03, 2015 Temperature 98.5 F Weight 173.8 lbs Height 66 in BMI 28.05 Index Blood Pressure Diastolic 80 mmHg Blood Pressure Systolic 112 mmHg Cardiac Monitoring Heart Rate 104 bpm Results No Known Results Summary Purpose eClinicalWorks Submission
--- OUTSIDE RECORDS SUMMARY | 2017-01-11 08:49 | XMS REPORT ---
Author MARLO Lacy Organization eClinicalWorks Address Unknown Phone Unavailable Care Team Providers Care Internal Controls Analyst Name Role Phone MARLO WILLIS CP [...]
--- OUTSIDE RECORDS SUMMARY | 2017-01-11 08:49 | XMS REPORT ---
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
--- OUTSIDE RECORDS SUMMARY | 2017-01-11 08:49 | XMS REPORT ---
Author DANA Mcnair [facility] eClinicalWorks Address Unknown Phone Unavailable Care Team Providers Care Scalehouse Attendant Name Role Phone DANA AMAYA CP Unavailable [...]
--- OUTSIDE RECORDS SUMMARY | 2017-01-11 08:49 | XMS REPORT ---
Author Author DANA AMAYA [facility] eClinicalWorks Address Unknown Phone Unavailable Care Team Providers Care Counter Installer Name Role Phone DANA AMAYA Unavailable Allergies No Known Allergies Problems Problem Type Condition Code Onset Dates Condition Status Problem Hepatitis C reactive 795.79 Active Problem History of drug abuse 305.93 Active Problem , normal first V22.0 Active Assessment Negative test Z32.02 Active Medications No Known Medications Procedures Procedure Coding System Code Date URINE TEST CPT-4 33708 Jul 18, 2015 Results Name Result Date Reference Range Unit Abnormality Flag TEST, URINE (IN HOUSE) Summary Purpose eClinicalWorks Submission
--- OUTSIDE RECORDS SUMMARY | 2017-01-11 08:50 | XMS REPORT ---
Author MATTHEW Garcia [facility] eClinicalWorks Address Unknown Phone Unavailable Care Team Providers Care Truck Rental Manager Name Role Phone MATTHEW RITTER CP Unavailable Allergies No Known Allergies Problems Problem Type Condition ICD-9 Code Onset Dates Condition Status Problem Hepatitis C reactive 795.79 Active Problem History of drug abuse 305.93 Active Problem , normal first V22.0 Active Medications No Known Medications Results No Known Results Summary Purpose eClinicalWorks Submission
--- OUTSIDE RECORDS SUMMARY | 2017-01-11 08:50 | XMS REPORT ---
Author LIANNE Zarate eClinicalWorks Address Unknown Phone Unavailable Care Team Providers Care Grading Supervisor Name Role Phone LIANNE MONSALVE CP Unavailable Allergies, Adverse Reactions, Alerts Substance Reaction Event Type N.K.D.A. 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
--- OUTSIDE RECORDS SUMMARY | 2017-01-11 08:50 | XMS REPORT ---
Author Author ALESSANDRA FERRO Organization eClinicalWorks Address Unknown Phone Unavailable Care Team Providers Care Corporate Manager Name Role Phone ALESSANDRA FERRO CP Unavailable Allergies, Adverse Reactions, Alerts Substance Reaction Event Type N.K.D.A. 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 Active Assessment Anxiety F41.9 Active Assessment Hives L50.9 Active Medications Medication Code System Code Instructions Start Date End Date Status Dosage BusPIRone HCl [facility] [address]-90 10 MG Orally Twice a day Sep 25, 2015 1 tablet Benadryl [facility] [address]-79 25 MG Orally every 6 hrs Sep 25, 2015 1 capsule as needed Procedures Procedure Coding System Code Date Office Visit, Est Pt., Level 3 CPT-4 72448 Sep 25, 2015 Vital Signs Date/Time: Sep 25, 2015 Temperature 98.6 F Weight 170.4 lbs Height 66 in BMI 27.50 Index Blood Pressure Diastolic 70 mmHg Blood Pressure Systolic 110 mmHg Cardiac Monitoring Heart Rate 84 bpm Results No Known Results Summary Purpose eClinicalWorks Submission
--- OUTSIDE RECORDS SUMMARY | 2017-01-11 08:50 | XMS REPORT ---
Author Author DANA AMAYA [facility] eClinicalWorks Address Unknown Phone Unavailable Care Team Providers Care House Shorer Name Role Phone DANA AMAYA Unavailable Allergies No Known Allergies Problems Problem Type Condition Code Onset Dates Condition Status Problem Hepatitis C reactive 795.79 Active Problem History of drug abuse 305.93 Active Problem , normal first V22.0 Active Assessment , normal first V22.0 Active Medications No Known Medications Procedures Procedure Coding System Code Date Office Visit, Est Pt., Level 3 CPT-4 24707 Jun 07, 2015 Vital Signs Date/Time: Jun 07, 2015 Blood Pressure Diastolic 70 mmHg Blood Pressure Systolic 104 mmHg Weight 211 lbs Results No Known Results Summary Purpose eClinicalWorks Submission
--- OUTSIDE RECORDS SUMMARY | 2017-01-11 09:30 | XMS REPORT | Continuity of Care Document ---
Author Author [facility] Address Unknown Phone Unavailable Allergies Active Description Code Type Severity Reaction Onset Reported/Identified Relationship to Patient Clinical Status Yes No Known Drug Allergies [id number] Drug Allergy Unknown N/ A 06/05/2015 Medications [...] - DRUG DEPENDENCE 02/19/2015 DANA AMAYA E GENERATION ENGINEER Ot V23.2 02/19/2015 DANA AMAYA E GENERATION ENGINEER Ot V23.89 02/19/2015 VALERIA AMAYASIE E GENERATION ENGINEER Ot V28.89 02/19/2015 VALERIA AMAYASIE E GENERATION ENGINEER Ot V23.2 02/19/2015 DANA AMAYA E GENERATION ENGINEER Ot V23.89 02/19/2015 VALERIA AMAYASIE E GENERATION ENGINEER Ot V28.89 03/13/2015 MATTHEW RITTER DO Ot V22.0 03/15/2015 VALERIA AMAYASIE E GENERATION ENGINEER Ot V23.2 03/15/2015 DANA AMAYA E GENERATION ENGINEER Ot V23.89 03/15/2015 DANA AMAYA E GENERATION ENGINEER Ot V28.89 04/12/2015 DANA AMAYA E GENERATION ENGINEER Ot V23.2 04/12/2015 DANA AMAYA E GENERATION ENGINEER Ot V23.89 04/12/2015 DANA AMAYA E GENERATION ENGINEER Ot V28.89 04/12/2015 VALERIA RITTER DOA Kyree Ot V22.0 04/24/2015 DANA AMAYA E GENERATION ENGINEER Ot 641.13 05/09/2015 VALERIA RITTER DOA K Ot 648.93 OTH CURR COND-ANTEPARTUM 05/09/2015 VALERIA RITTER DOA K Ot 789.00 ABDOMINAL PAIN, UNSPECIFIED SITE 05/21/2015 DANA AMAYA GENERATION ENGINEER Ot 641.13 06/05/2015 VALERIA RITTER DOA Kyree Ot 644.13 THREAT LABOR NEC-ANTEPAR 06/05/2015 MATTHEW RITTER DO Ot V04.81 ND FOR PROPHYLACTIC VACCIN AND INOCULATI 06/06/2015 MATTHEW RITTER DO Ot 644.03 THRT ZORAIDA LABOR-ANTEPART 06/10/2015 GRICEL WILKES, LIANNE Armstrong Ot 650 NORMAL DELIVERY 06/10/2015 GRICEL WILKES, LIANNE Armstrong Ot V27.0 DELIVER-SINGLE LIVEBORN 06/17/2015 DANA AMAYA E GENERATION ENGINEER Ot V23.2 06/17/2015 DANA AMAYA E GENERATION ENGINEER Ot V23.89 06/17/2015 DANA AMAYA E GENERATION ENGINEER Ot V28.89 06/17/2015 VALERIA RITTER DOA Kyree Ot V22.0 06/17/2015 DANA AMAYA E GENERATION ENGINEER Ot 641.13 06/17/2015 DANA AMAYA E GENERATION ENGINEER Ot 641.13 06/18/2015 MARTA WILKES, MULU Brooks [...] PAIN, UNSPECIFIED SITE 05/11/2016 HELVALERIA GALARZASIE E GENERATION ENGINEER Ot V23.2 PREG W HX OF 05/11/2016 HELLVALERIA HARDWICKSIE E GENERATION ENGINEER Ot V23.89 SUPRV OTH HIGH-RISK 05/11/2016 HELLRONEN DANA E GENERATION ENGINEER Ot V28.89 OTHER SPECIFIED SCREENING 05/11/2016 MATTHEW RITTER DO Ot V22.0 SUPERVIS NORMAL 1ST PREG 05/11/2016 VALERIA AMAYASIE E GENERATION ENGINEER Ot 641.13 PLACEN PREV HEM-ANTEPART 05/11/2016 NITALVALERIA HARDWICKSIE E GENERATION ENGINEER Ot 641.13 PLACEN PREV HEM-ANTEPART 05/11/2016 REBECCA BUCK GENERATION ENGINEER Ot R23.4 CHANGES IN SKIN TEXTURE 05/13/2016 REBECCA BUCK GENERATION ENGINEER Ot R23.4 CHANGES IN SKIN TEXTURE 05/17/2016 REBECCA BUCK GENERATION ENGINEER Ot R23.4 CHANGES IN SKIN TEXTURE 12/19/2016 DANA AMAYA E GENERATION ENGINEER Ot V23.2 PREG W HX OF 12/19/2016 VALERIA AMAYASIE E GENERATION ENGINEER Ot V23.89 SUPRV OTH HIGH-RISK 12/19/2016 VALERIA AMAYASIE E GENERATION ENGINEER Ot V28.89 OTHER SPECIFIED SCREENING 12/19/2016 MATTHEW RITTER DO Ot V22.0 SUPERVIS NORMAL 1ST PREG 12/19/2016 VALERIA AMAYASIE E GENERATION ENGINEER Ot 641.13 PLACEN PREV HEM-ANTEPART 12/19/2016 VALERIA AMAYASIE E GENERATION ENGINEER Ot 641.13 PLACEN PREV HEM-ANTEPART 12/20/2016 SANTY [...] Procedures Code [place] [address] TEST, URINE (IN-HOUSE) 12/25/2014 55986 URINE DRUG SCREEN (IN-HOUSE) 12/25/2014 18960 UA OB DIP 2014 04577 OB - EARLY <14 WEEKS 12/25/2014 01129 ROUTINE VENIPUNCTURE 12/29/2014 36153 CMP 12/29/2014 61646 TSH 12/29/2014 35300 CBC 12/29/2014 60113 SYPHILLIS-STATE LAB 12/29/2014 06866 HIV (STATE LAB) 12/29/2014 33720 RUBELLA ANTIBODY, IGG 12/29/2014 63132 ANTIBODY SCREEN (order) 12/29/2014 72774 BLOOD TYPE/Rh FACTOR 12/29/2014 18283 CULTURE URINE 06/2015 54177 HEP B SURFACE ANTIGEN (STATE) 12/29/2014 74999 HEP C PCR QUANT W/BRISEIDA 12/29/2014 73.6 [...] Status Pt. Type Provider Facility Loc./Unit Complaint [id number] 01/03/2015 15:51:00 01/03/2015 23: 59:59 CLS Outpatient RITTER DO, MATTHEW K [id number] 12/29/2014 12:01:00 12/29/2014 23: 59:59 CLS Outpatient MATTHEW RITTER DO [id number] 12/25/2014 13:40:00 12/25/2014 23: 59:59 CLS Outpatient MATTHEW RITTER DO
== END 2016-12-20 12:16 | disposition home or self-care (01) ==
LOC: DELPENDDIS → EDUNIT# 14:38 → ER 14:43 → UNDOADMOB 18:19 → 4TH 18:19 → UNDODISOB 12-20 12:16
PROVIDERS: ADMIT Surgery Pediatric Surgery; ATTEND Surgery Pediatric Surgery
DX: T81.719A Complication of unspecified artery following a procedure, not elsewhere classified, initial encounter (principal); I74.2 Embolism and thrombosis of arteries of the upper extremities; F17.210 Nicotine dependence, cigarettes, uncomplicated; I96 Gangrene, not elsewhere classified
CPT/HCPCS: 73140; 80306; 96372; 99281; 99285; G0378

== ENCOUNTER 2017-02-04 12:32 | Outpatient (CLI) | payer MEDICAID ==
[~2017-02-04] VITALS: Ht 167.6 cm; Wt 77.1 kg
[~2017-02-04 12:32] MED LIST changes: +CIPR-225 PO; +ENOX40DI13 SQ; +OXYC-197 PO
[2017-02-05] MEDS ORDERED: ASPI-586 PO (10:58)
[2017-02-05] MEDS ORDERED: HYDR-3730 PO (13:05)
== END 2017-02-04 15:04 ==
LOC: PREOP 12:32
PROVIDERS: ATTEND Surgery Pediatric Surgery
DX: Z01.818 Encounter for other preprocedural examination (principal); I96 Gangrene, not elsewhere classified; I74.2 Embolism and thrombosis of arteries of the upper extremities

== ENCOUNTER 2017-02-05 10:05 | Day surgery (SDC) | payer MEDICAID ==
[~2017-02-05] VITALS: Ht 167.6 cm; Wt 77.1 kg
--- NOTE | 2017-02-05 10:16 | Progress Note-Pre Operative ---
Pre-Operative Progress Note H&P Reviewed The H&P was reviewed, patient examined and no changes noted. 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 GABY MADERA MD February 05, 2017 10:16
[2017-02-05] MEDS ORDERED: BUPIVACAINE 0.5% 30 ML (SENSORCAINE) VIAL ONE (10:20)
[2017-02-05] MEDS ORDERED: morphine INJ 10 MG/ML 1ML (SYR OR VIAL) IVP PRN (10:30)
[2017-02-05] MEDS ORDERED: ACETAMINOPHEN 325 MG TABLET/CAPLET (TYLENOL) PO PRN (10:30)
[2017-02-05] MEDS ORDERED: ONDANSETRON 4 MG/2 ML (SDV) Z0FRAN IVP PRN ×2 (10:30→12:30)
[2017-02-05] MEDS ORDERED: HYDROcodone/APAP 5 MG/325 MG (LORTAB) TAB PO ONE (10:30)
[2017-02-05] MEDS ORDERED: proPOfol 200 MG/20 ML (DIPRIVAN) VIAL IV ONE (10:32)
[2017-02-05] MEDS ORDERED: fentaNYL INJECTION 100 MCG/2 ML AMP ONE (10:32)
[2017-02-05] MEDS ORDERED: MIDAZOLAM 2 MG/2 ML (VERSED) VIAL ONE (10:32)
[2017-02-05] MEDS ORDERED: LACTATED RINGERS 1,000 ML IV PRN (10:33)
[2017-02-05] MEDS ORDERED: ceFAZolin 1 GM/NS 50 ML IVPB IV ONE ×2 (10:45)
[2017-02-05] MEDS ORDERED: CATHETER FLUSH 10 ML SYR IV PRN (10:45)
[2017-02-05] MEDS ORDERED: ASPI-586 PO (10:58)
[2017-02-05] MEDS ORDERED: LIDOCAINE 1% 10 MG/ML 0.2 ML SYR (FOR IV START) ONE (11:06)
[2017-02-05 11:07] VITALS: BP 106/67
[2017-02-05] MEDS ORDERED: ceFAZolin 1,000 MG (ANCEF) VIAL ONE (11:27)
[2017-02-05] MEDS ORDERED: NS (IVPB) 50 ML ONE (11:27)
[2017-02-05] MEDS ORDERED: MIDAZOLAM 10 MG/2 ML (VERSED) VIAL ONE (12:10)
[2017-02-05] MEDS ORDERED: MEPERIDINE (DEMEROL) INJ 50 MG/ML IVP PRN (12:30)
[2017-02-05] MEDS ORDERED: ONDANSETRON 4 MG/2 ML (SDV) Z0FRAN ONE (12:47)
--- NOTE | 2017-02-05 13:04 | Progress Note-Post Operative ---
Post-Operative Progess Note Surgeon (s)/Upfitter (s) Surgeon GABY MADERA MD Upfitter: clifford doan APRN Pre-Operative Diagnosis thrombosis and ischemia distal left 2nd phalanx. Post-Operative Diagnosis same Procedure & Operative Findings Date of Procedure 02/05/17 Procedure Performed/Findings debridement skin/fascia left 2nd distal finger with intermediate closure. digital nerve block. Anesthesia Type MAC with digital nerve block and local Estimated Blood Loss Estimated blood loss (mL): minimal Specimens/Packing Specimens Removed tip of 2nd finger GABY MADERA MD February 05, 2017 1:04 pm
[2017-02-05] MEDS ORDERED: HYDR-3730 PO (13:05)
--- NOTE | 2017-02-05 13:07 | Discharge Inst-Surgical ---
D/C Lap Instructions-SANTY New, Converted, or Re-Newed RX: RX on Chart Follow Up 1 week Activity as tolerated Regular Diet Symptoms to Report: Fever over 101 degree F, Nausea/Vomiting Infection Signs and Symptoms to report: Increased redness, Foul odor of wound, Increased drainage Bathing instructions: May shower Operative Area Clean/Dry; Keep incision clean/dry If any problems/questions: Contact your physician or go to Emergency Room GABY MADERA MD February 05, 2017 1:07 pm
[2017-02-05] MEDS: morphine INJ 10 MG/ML 1ML (SYR OR VIAL) IVP PRN ×2 (13:10→13:12)
[2017-02-05 13:25] VITALS: BP 108/66
[2017-02-05 13:55] VITALS: BP 114/58
[2017-02-05 14:25] VITALS: BP 102/56
[2017-02-05 14:55] VITALS: BP 102/56
--- NOTE | 2017-02-05 16:17 | Diagnostic Imaging Report ---
EXAMINATION: Arterial vascular ultrasound of the left upper extremity. INDICATION: Left subclavian artery thrombolysis. FINDINGS: The left subclavian artery is patent with triphasic waveforms seen. The axillary artery is also patent. No aneurysm or occlusion. IMPRESSION: Normal appearance of the left subclavian artery. Dictated by: Dictated on workstation # [id number]
--- NOTE | 2017-02-06 01:52 | OPERATIVE REPORT ---
DATE OF SERVICE: 02/05/2017 ATTENDING [employer] SUPERVISOR: [facility]. PREOPERATIVE DIAGNOSIS: Ischemic necrosis, distal second phalanx. POSTOPERATIVE DIAGNOSIS: Ischemic necrosis, distal second phalanx . PROCEDURE: Digital nerve block, excision distal phalanx soft tissue with primary intermediate closure. SURGEON: Dr. Madera. LVN HOME HEALTH: Dayron Galicia APRN. ANESTHESIA: Monitored anesthesia care with local and digital nerve block. ESTIMATED BLOOD LOSS: Minimal. FINDINGS: Necrosis at the tip of the second phalanx. DISPOSITION: The patient tolerated the procedure well. INDICATIONS: The patient is a 21-year-old female who presented [facility] [place] [facility] on 12/19/2016 for a 3-week history of pain and swelling and discoloration of the second distal finger. She underwent an attempted blood draw as an outpatient and they were unable to get blood, so they attempted a fingerstick, which she reports was painful. No blood was obtained. After that, she developed pain and swelling for the next 4 to 5 days and noticed swelling as well as a bluish tint of the finger. Over the next 3 weeks, the discoloration worsened as well as the pain. There was a dry necrosis of the second distal tip of the finger. She did not report any cold exposure to indicate any potential frostbite. She also does not know of any known hypercoagulable disorders. She also does not report any systemic symptoms as well as no collagen vascular disorders that she knows of. She does report a history of IV drug abuse for several years and was on heroin as a drug of choice on a daily basis. She reports that she has not done any drugs in the past two years. She was seen in my office several times with small improvements of the wound and normal coloration and vascularity with only a small amount of dry necrosis of the fat pad of the tip of the finger. DESCRIPTION OF PROCEDURE: The patient was brought to the operating room, laid supine on the table. After adequate IV pain and sedative medications and monitored anesthesia care, the hand was prepped and draped in standard surgical fashion. Digital nerve block was performed using 0.5% Marcaine of bilateral digit as well as along the dorsal and palmar aspects. Local anesthetic was placed around the dry necrosis of the tip of the finger as well. The necrotic tissue did encompass all layers of the skin as well as the fat pad, which was excised sharply using a 15 blade. The nail was left intact. Good hemostasis was achieved using electrocautery. The skin edges were then approximated encompassing the nail as well using a 3-0 Prolene horizontal mattress sutures. The wound was then cleaned and covered with gauze followed by tube gauze. The patient tolerated the procedure well. We will start IV and oral pain medication as well as a clear liquid diet. Once she is tolerating clears and has good pain control with oral pain medications and ambulating well, we will discharge her home. We will also start her on Levaquin, which she responded well initially. She will most likely underneath to go further workup and evaluation. She does report swelling of the hands and feet bilaterally. She states that she did undergo workup for endocarditis in the past; however, this was approximately 2 years ago and in the [facility]. We feel that due to her previous heavy IV drug abuse that she will need further evaluation for residual signs of bacterial endocarditis or valvular heart disease. 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 Job ID: [id number] DocumentID: [id number] Dictated Date: 02/05/2017 12:52:08 Employee Benefits Coordinator Date: 02/05/2017 23:11:57 Dictated By: GABY MADERA MD [facility]
== END 2017-02-05 14:55 | disposition home or self-care (01) ==
LOC: SDC 10:05
PROVIDERS: ATTEND Surgery Pediatric Surgery
DX: I96 Gangrene, not elsewhere classified (principal); F11.21 Opioid dependence, in remission; B19.20 Unspecified viral hepatitis C without hepatic coma; G40.909 Epilepsy, unspecified, not intractable, without status epilepticus; F17.210 Nicotine dependence, cigarettes, uncomplicated; Z79.899 Other long term (current) drug therapy
CPT/HCPCS: 84703; 87081; 93931